=== PATIENT | male | born 1960 | race Caucasian/White ===

== ENCOUNTER → 2016-09-23 | Outpatient (CLI) | payer BC, OTHER ==
[~2016-09-23] VITALS: Ht 182.9 cm; Wt 115.7 kg
[~2016-09-23] MED LIST: ASPI81TA85 PO; ATEN100T PO; LIDOCAINE 2% INJ 100 MG/5 ML SDV (FOR ANES.) As Ordered ONE; LISI10TA2 PO; LISI20TA3 PO; NS 1,000 ML IV SCH; PRAV40TA2 PO; PROPOFOL 200 MG/20 ML VIAL As Ordered ONE; SILD25TA PO
--- NOTE | 2016-09-23 10:55 | ROOR ---
Patient Name: Lawrence Hansen Procedure Date: 09/23/2016 10:36 AM Date of : 1960 Age: 56 Room: [facility] Gender: Male Note Status: Finalized Procedure: Colonoscopy Indications: Screening for colorectal malignant neoplasm Providers: Sridhar Rodriguez Jr, MD Referring MD: [facility], Admin. Requesting Provider: Medicines: Propofol per Anesthesia Complications: No immediate complications. Procedure: Pre-Anesthesia Assessment: - Prior to the procedure, a History and Physical was performed, and patient medications and allergies were reviewed. The patient is competent. The risks and benefits of the procedure and the sedation options and risks were discussed with the patient. All questions were answered and informed consent was obtained. Patient identification and proposed procedure were verified by the physician and the nurse in the pre-procedure area and in the procedure room. Mental Status Examination: alert and oriented. Airway Examination: normal oropharyngeal airway and neck mobility. Respiratory Examination: clear to auscultation. CV Examination: normal. ASA Grade Assessment: II - A patient with mild systemic disease. After reviewing the risks and benefits, the patient was deemed in satisfactory condition to undergo the procedure. The anesthesia plan was to use moderate sedation / analgesia (conscious sedation). Immediately prior to administration of medications, the patient was re-assessed for adequacy to receive sedatives. The heart rate, respiratory rate, oxygen saturations, blood pressure, adequacy of pulmonary ventilation, and response to care were monitored throughout the procedure. The physical status of the patient was re-assessed after the procedure. The Colonoscope was introduced through the anus and advanced to the cecum, identified by appendiceal orifice and ileocecal valve. The colonoscopy was performed without difficulty. The patient tolerated the procedure well. The quality of the bowel preparation was adequate and good. Findings: The perianal and digital rectal examinations were normal. Pertinent negatives include normal sphincter tone, no palpable rectal lesions and no anal lesion or abnormality was detected. The recto-sigmoid colon, sigmoid colon, descending colon, transverse colon, ascending colon, cecum, appendiceal orifice and ileocecal valve appeared normal. Impression: - The recto-sigmoid colon, sigmoid colon, descending colon, transverse colon, ascending colon, cecum, appendiceal orifice and ileocecal valve are normal. - No specimens collected. Recommendation: - Discharge patient to home (ambulatory). - Repeat colonoscopy in 10 years for screening purposes. Sridhar Rodriguez MD Sridhar Rodriguez Jr, MD 09/23/2016 10:54:53 AM This report has been signed electronically. Number of Addenda: 0 Note Initiated On: 09/23/2016 10:36 AM Estimated Blood Loss: Estimated blood loss: none.
[2016-09-23 11:15] VITALS: BP 145/92
== END | disposition home or self-care (01) ==
LOC: M OPP 10:11
PROVIDERS: ATTEND Surgery
DX: Z12.11 Encounter for screening for malignant neoplasm of colon (principal); I10 Essential (primary) hypertension; E78.5 Hyperlipidemia, unspecified; R06.83 Snoring; Z87.891 Personal history of nicotine dependence; Z79.82 Long term (current) use of aspirin; Z79.899 Other long term (current) drug therapy
CPT/HCPCS: 99156; G0121

== ENCOUNTER → 2019-04-06 | Outpatient (REF) | payer OTHER ==
[~2019-04-06] MED LIST changes: -LIDOCAINE 2% INJ 100 MG/5 ML SDV (FOR ANES.) As Ordered ONE; +LISI10TA15 PO; -LISI10TA2 PO; +LISI20TA20 PO; -LISI20TA3 PO; -NS 1,000 ML IV SCH; -PROPOFOL 200 MG/20 ML VIAL As Ordered ONE
== END ==
LOC: M SFHCPLAZ 10:22
PROVIDERS: ATTEND Dermatology
DX: D22.4 Melanocytic nevi of scalp and neck (principal); L57.0 Actinic keratosis

== ENCOUNTER 2020-11-16 09:54 | Day surgery (SDC) | payer BC, OTHER ==
[~2020-11-16] VITALS: Ht 182.9 cm; Wt 119.1 kg
[~2020-11-16 09:54] MED LIST changes: -ASPI81TA85 PO; +ASPI81TA86 PO
[2020-11-16 10:35] LABS: BASO % 0.3 % (0.0-1.0); EOS # 0.4 10^3/uL (0.0-0.5); HEMATOCRIT 44.9 % (42.0-52.0); HEMOGLOBIN 15.2 g/dl (13.5-17.5); LYMPH # 1.9 10^3/uL (1.5-5.0); MEAN CORPUSCULAR HEMOGLOBIN 30.5 pg (27.0-33.0); MEAN CORPUSCULAR HGB CONC 33.9 g/dl (32.0-36.5); MONO # 0.8 10^3/uL (0.0-0.8); MONO % 6.8 % (2.0-8.0); NEUTROPHILS # 8.7 10^3/uL (1.5-8.5); NEUTROPHILS % 73.6 % (36.0-66.0); PLATELET COUNT, AUTOMATED 242 10^3/uL (150-450); RED BLOOD COUNT 4.99 10^6/uL (4.30-6.10); WHITE BLOOD COUNT 11.9 10^3/uL (4.0-10.0)
[2020-11-16 11:01] LABS: ALBUMIN 4.1 GM/DL (3.2-5.2); ALT/SGPT 24 U/L (12-78); BILIRUBIN,DIRECT < 0.1 MG/DL (0.0-0.2); BILIRUBIN,TOTAL 0.6 MG/DL (0.2-1.0); BLOOD UREA NITROGEN 12 MG/DL (7-18); CALCIUM LEVEL 9.2 MG/DL (8.5-10.1); CARBON DIOXIDE LEVEL 32 MEQ/L (21-32); CHLORIDE LEVEL 104 MEQ/L (98-107); CREATININE FOR GFR 0.94 MG/DL (0.70-1.30); GLOMERULAR FILTRATION RATE > 60.0 (>56); GLUCOSE, FASTING 97 MG/DL (70-100); LIPASE 112 U/L (73-393); POTASSIUM SERUM 3.8 MEQ/L (3.5-5.1); SODIUM LEVEL 140 MEQ/L (136-145); TOTAL PROTEIN 7.2 GM/DL (6.4-8.2)
--- NOTE | 2020-11-16 11:35 | REP ---
INDICATION: Pain rlq intermittent 3 months, concern hernia. COMPARISON: None. TECHNIQUE: Real-time sonographic evaluation of inguinal regions performed as well as right lower quadrant abdominal wall. FINDINGS: No evidence of anterior abdominal hernia in the right lower quadrant and no evidence of left inguinal hernia. There is a small right inguinal hernia with Valsalva maneuver, which contains peritoneal fat but no bowel. With Valsalva maneuver the defect is 2.5 cm in diameter. This freely reduces. There is no mass or fluid collection. IMPRESSION: Small reducible right inguinal hernia containing peritoneal fat, identified only with Valsalva maneuver. <Electronically signed by Dominic Ann > 11/16/20 [id number]
[2020-11-16] MEDS ORDERED: ISOVUE-370 76% 100ML VIAL As Ordered ONE (12:34)
[2020-11-16] MEDS ORDERED: NS 1,000 ML IV ONE (12:35)
--- NOTE | 2020-11-16 13:07 | REP ---
INDICATION: R lower groin pain , hernia on US, pain out prop to exam COMPARISON: None. TECHNIQUE: CT Scan of the abdomen and pelvis was performed with intravenous administration of 100 cc of Isovue 370, without oral contrast. Sagittal and coronal reconstruction images are performed. FINDINGS: Lung bases: Unremarkable. Liver: There is a 9 mm hypodensity in the right lobe of the liver probably representing a tiny cyst or hemangioma. Gallbladder: Unremarkable. Spleen: Normal. Adrenals: Normal. Pancreas: Normal. Kidneys: Normal. Small and large bowel: Unremarkable. Free fluid: Tiny amount of fluid adjacent to the distal appendix. Abdominal aorta: No aneurysm or dissection. Adenopathy: None. Appendix: The mid to distal appendix is diffusely distended and thickened with surrounding inflammatory fat infiltration, and inflammatory changes extending into the right pelvis more inferiorly. Osseous structures: Unremarkable. Pelvis: No mass. IMPRESSION: Appendicitis with a tiny amount of free fluid adjacent to the tip of the appendix. No free air or abscess. <Electronically signed by Dominic Ann > 11/16/20 [id number]
[2020-11-16] MEDS ORDERED: ONDANSETRON 4MG/2ML VIAL IV ONE (13:15)
[2020-11-16] MEDS ORDERED: MORPHINE 4 MG/ML 1ML VIAL/SYRINGE (J2270) IV ONE (13:15)
[2020-11-16] MEDS ORDERED: PIPERACILLIN/TAZOBACTAM SOD 3.375 GM in D5W MINI-BAG PLUS 50 ML IV ONE (13:20)
[2020-11-16] MEDS ORDERED: VALA1TAB5 PO (13:54)
[2020-11-16] MEDS ORDERED: BUPIVACAINE/EPIN 0.25% 30 ML VIAL As Ordered ONE (16:24)
[2020-11-16] MEDS ORDERED: MIDAZOLAM INJ 2MG/2ML VIAL (J2250 PER 1MG) As Ordered ONE (17:01)
[2020-11-16] MEDS ORDERED: ONDANSETRON 4MG/2ML VIAL As Ordered ONE (17:01)
[2020-11-16] MEDS ORDERED: dexameTHASONE 4 MG/ML 1ML VIAL (J1100 PER 1MG) As Ordered ONE (17:01)
[2020-11-16] MEDS ORDERED: propofoL 200 MG/20 ML VIAL As Ordered ONE (17:01)
[2020-11-16] MEDS ORDERED: ACETAMINOPHEN 1000MG 100ML IV BTL (OFIRMEV) (J0131 PER 10MG) As Ordered ONE (17:01)
[2020-11-16] MEDS ORDERED: KETOROLAC 60MG 2ML VIAL As Ordered ONE (17:01)
[2020-11-16] MEDS ORDERED: METOCLOPRAMIDE INJ 10MG/2ML VIAL (J2765 PER 1) As Ordered ONE (17:01)
[2020-11-16] MEDS ORDERED: SUCCINYLCHOLINE 100 MG/5 ML SYRINGE (J0330) As Ordered ONE (17:01)
[2020-11-16] MEDS ORDERED: fentaNYL 250 MCG/5 ML INJECTION (J3010) As Ordered ONE (17:01)
[2020-11-16] MEDS ORDERED: LIDOCAINE 2% 100MG/5ML SDV (FOR ANES.) As Ordered ONE (17:01)
[2020-11-16] MEDS ORDERED: DESFLURANE 240 ML INHALANT As Ordered ONE (17:27)
[2020-11-16] MEDS ORDERED: MORPHINE 4 MG/ML 1ML VIAL/SYRINGE (J2270) IV PRN ×2 (17:35)
[2020-11-16] MEDS ORDERED: PERCOCET 5MG/325MG TAB PO PRN ×2 (17:35)
[2020-11-16] MEDS ORDERED: SUGAMMADEX SODIUM 500 MG/5 ML VIAL (BRIDION) As Ordered ONE (17:36)
[2020-11-16] MEDS ORDERED: ROCURONIUM BROMIDE 50 MG/5 ML VIAL As Ordered ONE (17:36)
[2020-11-16] MEDS ORDERED: oxyCODONE 5MG TAB PO PRN (17:50)
[2020-11-16] MEDS ORDERED: HYDROMORPHONE HCL 0.5 MG/ 0.5 ML SYRINGE (J1170 PER 1) IV PRN (17:50)
[2020-11-16] MEDS ORDERED: LR 1,000 ML IV SCH (17:50)
[2020-11-16] MEDS ORDERED: fentaNYL 100 MCG/2 ML INJECTION (J3010) IV PRN (17:50)
[2020-11-16] MEDS ORDERED: ONDANSETRON 4MG/2ML VIAL IV PRN (17:50)
[2020-11-16] MEDS ORDERED: D5W/LR 1,000 ML IV SCH (18:00)
[2020-11-16 18:26] VITALS: BP 121/63
[2020-11-16 18:30] VITALS: BP 121/63
[2020-11-16 19:51] VITALS: BP 118/62
[2020-11-16] MEDS: PIPERACILLIN/TAZOBACTAM SOD 3.375 GM in D5W MINI-BAG PLUS 50 ML IV SCH (20:09)
[2020-11-16 21:07] VITALS: BP 117/63
[2020-11-16 22:48] VITALS: BP 118/64
[2020-11-16] MEDS: KETOROLAC 30 MG/ML 1ML VIAL IV SCH (23:21)
[2020-11-17 02:00] VITALS: BP 116/79
[2020-11-17] MEDS: PIPERACILLIN/TAZOBACTAM SOD 3.375 GM in D5W MINI-BAG PLUS 50 ML IV SCH ×2 (02:24→08:50)
[2020-11-17] MEDS: KETOROLAC 30 MG/ML 1ML VIAL IV SCH (06:00)
[2020-11-17 06:23] VITALS: BP 117/65
[2020-11-17] MEDS ORDERED: AUGM500T34 PO (08:32)
[2020-11-17] MEDS ORDERED: PERCOCET PO (08:32)
[2020-11-17 10:00] VITALS: BP 110/60
--- NOTE | 2020-12-10 09:15 | RO ---
OPERATIVE NOTE DATE OF OPERATION: 11/18/2020 PREOPERATIVE DIAGNOSIS: Acute appendicitis. POSTOPERATIVE DIAGNOSIS: Acute appendicitis. PROCEDURE: Laparoscopic appendectomy. SURGEON: Sridhar Rodriguez Jr., MD WORKFORCE MANAGER: ANESTHESIA: General endotracheal anesthesia. ESTIMATED BLOOD LOSS: Minimal. FLUIDS: Crystalloid. BRIEF PROCEDURE SUMMARY: Patient was brought to the operating room and was given general anesthesia. After adequate anesthesia and preoperative antibiotics were appreciated, the patient was prepped and draped in the usual sterile fashion. Next, a suprapubic incision was made with a skin knife. Blunt dissection was carried down to fascia. The fascia was entered using Veress needle, insufflated to 15 mmHg, and a dilating 12-mm trocar was placed. Under direct visualization, a suprapubic and left lower quadrant 5-mm trocars were placed. Next, the right lower quadrant was evaluated and, indeed, there was an appendix with some fibrinous exudate all over it and some inflammation of the appendix itself as well as the periappendiceal fat. The appendix was mobilized off the right abdominal wall using harmonic scalpel, and once this was mobilized adequately, the mesentery of the appendix was taken with harmonic scalpel all the way to the base of the appendix/cecal wall. Once this was nicely identified, a JEAN MARIE stapler was placed across the base of the appendix and the appendix placed in an Endo Catch bag and brought out through the umbilicus. The right lower quadrant was copiously irrigated until clear. Operative field was clean and dry, and no turbid fluid was appreciated; no evidence of perforation of the appendix had been appreciated. Thus, all trocars were removed under direct visualization and 0 Vicryl was used to close the fascia at the umbilicus, and trocar sites were closed with 4-0 Vicryl. Steri-Strips and a dry sterile dressing were applied. The patient was awakened, extubated, and brought to the recovery room awake, alert, and hemodynamically stable. Sponge and needle counts correct times two.
== END 2020-11-17 11:15 | disposition home or self-care (01) ==
LOC: M ED 09:54 → M SDC 09:55 → ENRESERV 16:05 → M MS5PR 18:15 → M SDC 11-17 11:15
PROVIDERS: ATTEND Surgery
DX: K35.80 Unspecified acute appendicitis (principal); Z87.09 Personal history of other diseases of the respiratory system; K40.90 Unilateral inguinal hernia, without obstruction or gangrene, not specified as recurrent; I10 Essential (primary) hypertension; E78.5 Hyperlipidemia, unspecified; N52.9 Male erectile dysfunction, unspecified; E66.9 Obesity, unspecified; Z68.35 Body mass index [BMI] 35.0-35.9, adult; Z79.899 Other long term (current) drug therapy; Z86.16 Personal history of COVID-19; Z87.891 Personal history of nicotine dependence
CPT/HCPCS: 44970; 74177; 76857; 80048; 80076; 81001; 83690; 85025; 87798; 88304; 96365; 96366; 96375; 96376; 99283; J0131; J0330; J1100; J1885; J2250; J2270; J2405; J2543; J2765; J3010; Q9967

== ENCOUNTER 2020-12-02 18:06 | Emergency (ER) | payer BC, OTHER ==
[~2020-12-02] VITALS: Ht 182.9 cm; Wt 116.5 kg
[~2020-12-02 18:06] MED LIST changes: +AUGM500T34 PO; +PERCOCET PO; +VALA1TAB5 PO
[2020-12-02] MEDS ORDERED: ONDANSETRON 4MG/2ML VIAL IV ONE (19:10)
[2020-12-02] MEDS: KETOROLAC 30 MG/ML 1ML VIAL IV ONE ×2 (19:10→20:12)
[2020-12-02] MEDS ORDERED: NS 1,000 ML IV ONE (19:10)
[2020-12-02 20:08] LABS: BASO % 0.1 % (0.0-1.0); EOS # 0.3 10^3/uL (0.0-0.5); EOS % 2.4 % (0.0-3.0); HEMATOCRIT 48.1 % (42.0-52.0); HEMOGLOBIN 16.4 g/dl (13.5-17.5); LYMPH # 1.2 10^3/uL (1.5-5.0); MEAN CORPUSCULAR HEMOGLOBIN 30.3 pg (27.0-33.0); MEAN CORPUSCULAR HGB CONC 34.1 g/dl (32.0-36.5); MEAN CORPUSCULAR VOLUME 88.7 fl (80.0-96.0); MONO # 0.5 10^3/uL (0.0-0.8); MONO % 4.7 % (2.0-8.0); NEUTROPHILS # 8.5 10^3/uL (1.5-8.5); NEUTROPHILS % 81.4 % (36.0-66.0); PLATELET COUNT, AUTOMATED 211 10^3/uL (150-450); RED BLOOD COUNT 5.42 10^6/uL (4.30-6.10); WHITE BLOOD COUNT 10.5 10^3/uL (4.0-10.0)
[2020-12-02] MEDS ORDERED: ISOVUE-370 76% 100ML VIAL As Ordered ONE (20:18)
[2020-12-02 20:31] LABS: ALBUMIN 3.8 GM/DL (3.2-5.2); BILIRUBIN,DIRECT 0.2 MG/DL (0.0-0.2); BILIRUBIN,TOTAL 0.8 MG/DL (0.2-1.0); TOTAL PROTEIN 7.1 GM/DL (6.4-8.2)
--- NOTE | 2020-12-02 22:05 | REPVR ---
PROCEDURE INFORMATION: Exam: CT Abdomen and Pelvis with Contrast Exam date and time: 12/02/20 (8:25pm) Age: 60 years old Clinical indication: RLQ pain. S/P appendectomy. TECHNIQUE: Imaging protocol: Computed tomography of the abdomen and pelvis with contrast. Radiation optimization: All CT scans at this facility use at least one of these dose optimization techniques: automated exposure control; mA and/or kV adjustment per patient size (includes targeted exams where dose is matched to clinical indication); or iterative reconstruction. Contrast material: Isovue 370 Contrast volume: 100 ml Contrast route: IV COMPARISON: CT ABDOMEN PELVIS of 11/16/20 FINDINGS: Liver: No solid mass. Small right hepatic lobe cyst (Ser. 201 - Image #43). Gallbladder and bile ducts: Normal. No calcified stones. No ductal dilatation. Pancreas: Normal. No ductal dilatation. Spleen: Normal. No splenomegaly. Adrenal glands: Normal. No mass. Kidneys and ureters: Normal. No hydronephrosis. Stomach and bowel: Unremarkable. No bowel obstruction. No mucosal thickening. Appendix: S/P appendectomy. Intraperitoneal space: Unremarkable. No free air. No significant fluid collection. Vasculature: Unremarkable. No abdominal aortic aneurysm. Lymph nodes: Unremarkable. No enlarged lymph nodes. Urinary bladder: Unremarkable as visualized. Reproductive: Unremarkable as visualized. Enlarged prostate. Fluid: Minimal amount of nonspecific pelvic fluid. Bones/joints: Unremarkable. No acute fracture. Soft tissues: Unremarkable. IMPRESSION: No acute bowel pathology. No abscess. S/P appendectomy. Minimal amount of nonspecific pelvic fluid. Electronically signed by: Lisy Huntley On 12/02/2020 22:04:54 PM
[2020-12-02] MEDS ORDERED: ONDA4TAB6 PO (22:32)
[2020-12-02] MEDS ORDERED: SIME180C25 PO (22:32)
[2020-12-02 22:51] VITALS: BP 104/53
== END 2020-12-02 22:54 | disposition home or self-care (01) ==
LOC: M ED 18:06
DX: G89.18 Other acute postprocedural pain (principal); R10.9 Unspecified abdominal pain; R07.1 Chest pain on breathing; R50.9 Fever, unspecified; R11.0 Nausea; R19.7 Diarrhea, unspecified; I10 Essential (primary) hypertension; Z79.899 Other long term (current) drug therapy
CPT/HCPCS: 74177; 80047; 80076; 81001; 83605; 83690; 85025; 87040; 96361; 96374; 99283; J2405; Q9967

== ENCOUNTER 2020-12-05 11:21 | Emergency (ER) | payer BC, OTHER ==
[~2020-12-05] VITALS: Ht 185.4 cm; Wt 117.2 kg
[~2020-12-05 11:21] MED LIST changes: +ONDA4TAB6 PO; +SIME180C25 PO
[2020-12-05 12:14] LABS: BASO % 0.1 % (0.0-1.0); EOS # 0.4 10^3/uL (0.0-0.5); EOS % 4.1 % (0.0-3.0); HEMATOCRIT 46.5 % (42.0-52.0); HEMOGLOBIN 15.9 g/dl (13.5-17.5); LYMPH # 1.2 10^3/uL (1.5-5.0); LYMPH % 12.5 % (24.0-44.0); MEAN CORPUSCULAR HEMOGLOBIN 30.5 pg (27.0-33.0); MEAN CORPUSCULAR HGB CONC 34.2 g/dl (32.0-36.5); MEAN CORPUSCULAR VOLUME 89.1 fl (80.0-96.0); MONO # 0.8 10^3/uL (0.0-0.8); MONO % 8.1 % (2.0-8.0); NEUTROPHILS # 6.9 10^3/uL (1.5-8.5); NEUTROPHILS % 74.9 % (36.0-66.0); PLATELET COUNT, AUTOMATED 203 10^3/uL (150-450); RED BLOOD COUNT 5.22 10^6/uL (4.30-6.10); WHITE BLOOD COUNT 9.2 10^3/uL (4.0-10.0)
[2020-12-05 12:41] LABS: ALBUMIN 3.8 GM/DL (3.2-5.2); BILIRUBIN,DIRECT 0.1 MG/DL (0.0-0.2); BILIRUBIN,TOTAL 0.5 MG/DL (0.2-1.0)
[2020-12-05] MEDS ORDERED: NS 1,000 ML IV ONE (13:55)
[2020-12-05] MEDS ORDERED: ONDANSETRON 4MG/2ML VIAL IV ONE (13:55)
[2020-12-05] MEDS: GASTROGRAFIN SOLUTION 30ML PO SCH ×2 (14:25→15:38)
[2020-12-05] MEDS ORDERED: ISOVUE-370 76% 100ML VIAL As Ordered ONE (16:30)
--- NOTE | 2020-12-05 18:00 | REPVR ---
PROCEDURE INFORMATION: Exam: CT Abdomen And Pelvis With Contrast Exam date and time: 12/05/2020 4:53 PM Age: 60 years old Clinical indication: Other: Diffuse abd pain, diarrhea tntc x6 days TECHNIQUE: Imaging protocol: Computed tomography of the abdomen and pelvis with contrast. Radiation optimization: All CT scans at this facility use at least one of these dose optimization techniques: automated exposure control; mA and/or kV adjustment per patient size (includes targeted exams where dose is matched to clinical indication); or iterative reconstruction. Contrast material: ISOVUE 370; Contrast volume: 100 ml; Contrast route: INTRAVENOUS (IV); COMPARISON: CT ABD/PEL W/IV CONTRAST ONLY 12/02/2020 8:17 PM FINDINGS: Lungs: Clear appearing lung bases Heart: The heart is normal in size and there is no pericardial effusion. Liver: 3 mm cyst inferior right lobe of the liver. There is otherwise uniform enhancement of the liver. Gallbladder and bile ducts: Normal common bile duct. Normal gallbladder. No biliary dilatation. Pancreas: Normal pancreas. Spleen: Normal spleen. Adrenal glands: Normal adrenal glands. Kidneys and ureters: There is enhancement of both kidneys and no evidence of hydronephrosis. Stomach and bowel: There is contrast throughout the small bowel with no evidence of obstruction. Intraperitoneal space: There is no evidence of pneumoperitoneum. No evidence of mesenteric mass. Vasculature: There is opacification of the aorta which appears intact. The there are surgical clips in the region of the appendix. Lymph nodes: There is no evidence of lymphadenopathy. Urinary bladder: Normal urinary bladder. Reproductive: Mild enlargement of the prostate. Bones/joints: There is mild posterior disc protrusion L4-L5 and L5-S1. Soft tissues: There is no evidence of soft tissue abnormality. IMPRESSION: Normal appearing CT scan the abdomen and the pelvis. Electronically signed by: Meliton Vogt On 12/05/2020 17:59:31 PM
[2020-12-05] MEDS ORDERED: LOPE-39 PO (19:14)
[2020-12-05 19:38] VITALS: BP 164/94
== END 2020-12-05 19:40 | disposition home or self-care (01) ==
LOC: M ED 11:21
DX: R14.0 Abdominal distension (gaseous) (principal); R19.7 Diarrhea, unspecified; I10 Essential (primary) hypertension; E78.5 Hyperlipidemia, unspecified; Z79.899 Other long term (current) drug therapy
CPT/HCPCS: 74177; 80076; 81001; 83605; 83690; 85025; 87505; 96374; 99284; J2405; Q9963; Q9967

== ENCOUNTER 2020-12-06 18:22 | Inpatient (IN) | payer BC, OTHER ==
[~2020-12-06] VITALS: Ht 182.9 cm; Wt 118.0 kg
[~2020-12-06 18:22] MED LIST changes: +LOPE-39 PO
[2020-12-06] MEDS ORDERED: PROMETHAZINE INJ 25 MG/ML VIAL (J2550) IV ONE (19:55)
[2020-12-06] MEDS ORDERED: NS 3,410 ML in IV 1 EA IV ONE (19:55)
[2020-12-06] MEDS ORDERED: LOMOTIL 2.5MG/0.025MG TABLET PO ONE (19:55)
[2020-12-06 20:52] LABS: BASO # 0.1 10^3/uL (0.0-0.2); BASO % 0.6 % (0.0-1.0); EOS # 0.2 10^3/uL (0.0-0.5); EOS % 1.5 % (0.0-3.0); LYMPH # 1.2 10^3/uL (1.5-5.0); LYMPH % 8.4 % (24.0-44.0); MEAN CORPUSCULAR HEMOGLOBIN 30.3 pg (27.0-33.0); MEAN CORPUSCULAR HGB CONC 34.1 g/dl (32.0-36.5); MEAN CORPUSCULAR VOLUME 88.8 fl (80.0-96.0); MONO # 0.9 10^3/uL (0.0-0.8); MONO % 6.6 % (2.0-8.0); NEUTROPHILS # 11.6 10^3/uL (1.5-8.5); NEUTROPHILS % 81.9 % (36.0-66.0); PLATELET COUNT, AUTOMATED 290 10^3/uL (150-450); RED BLOOD COUNT 6.53 10^6/uL (4.30-6.10); WHITE BLOOD COUNT 14.2 10^3/uL (4.0-10.0)
[2020-12-06 20:53] LABS: HEMOGLOBIN 19.8 g/dl (13.5-17.5)
[2020-12-06] MEDS ORDERED: SIMETHICONE 80MG CHEW TAB PO SCH (21:00)
[2020-12-06 21:08] LABS: ALT/SGPT 20 U/L (12-78); BILIRUBIN,DIRECT < 0.1 MG/DL (0.0-0.2); BILIRUBIN,TOTAL 0.7 MG/DL (0.2-1.0); BLOOD UREA NITROGEN 14 MG/DL (7-18); CALCIUM LEVEL 9.9 MG/DL (8.5-10.1); CARBON DIOXIDE LEVEL 24 MEQ/L (21-32); CHLORIDE LEVEL 104 MEQ/L (98-107); CK-MB VALUE MASS 1.4 NG/ML (<3.6); CPK CREATINE PHOSPHOKINASE 70 U/L (39-308); CREATININE FOR GFR 1.47 MG/DL (0.70-1.30); GLOMERULAR FILTRATION RATE 52.2 (>56); GLUCOSE, FASTING 126 MG/DL (70-100); LIPASE 84 U/L (73-393); POTASSIUM SERUM 4.2 MEQ/L (3.5-5.1); SODIUM LEVEL 140 MEQ/L (136-145); TOTAL PROTEIN 7.5 GM/DL (6.4-8.2); TROPONIN I < 0.02 NG/ML (< 0.10)
[2020-12-06 22:46] LABS: INR 1.03; PROTHROMBIN TIME 13.7 SECONDS (12.5-14.3)
[2020-12-06] MEDS ORDERED: ACETAMINOPHEN *IV* 1,000 MG in IV 1 EA IV ONE (23:35)
[2020-12-06] MEDS ORDERED: ISOVUE-370 76% 100ML VIAL As Ordered ONE (23:39)
--- NOTE | 2020-12-07 00:39 | REPVR ---
PROCEDURE INFORMATION: Exam: CTA Abdomen and Pelvis With Contrast Exam date and time: 12/06/2020 11:48 PM Age: 60 years old Clinical indication: Abdominal pain; Generalized; Additional info: Intractable diarrhea/abd pain, lactic acidosis, ? ischemia TECHNIQUE: Imaging protocol: Computed tomographic angiography of the abdomen and pelvis with contrast material. 3D rendering (Not supervised by radiologist): MIP and/or 3D reconstructed images were created by the technologist. Radiation optimization: All CT scans at this facility use at least one of these dose optimization techniques: automated exposure control; mA and/or kV adjustment per patient size (includes targeted exams where dose is matched to clinical indication); or iterative reconstruction. Contrast material: ISOVUE 370; Contrast volume: 100 ml; Contrast route: INTRAVENOUS (IV); COMPARISON: 1. CT ABD/PEL W/IV ORAL CONTRAS 2020-12-05 16:[address] ABD/PEL W/IV CONTRAST ONLY 2020-12-02 20:17 FINDINGS: Mediastinal space: Mild gastro-esophageal thickening. Question distal esophagitis. Aorta: Mild aortic atherosclerosis. Mild aortic and iliac artery atherosclerotic calcification. Celiac trunk and mesenteric arteries: No occlusion or significant stenosis. Renal arteries: No occlusion or significant stenosis. Right iliac arteries: No occlusion or significant stenosis. Left iliac arteries: No occlusion or significant stenosis. Liver: Small, less than 5 mm, liver hypodensity. Highly likely to be benign and does not require follow-up imaging or biopsy per ACR. Hepatic steatosis. Gallbladder and bile ducts: Unremarkable. No calcified stones. No ductal dilation. Pancreas: Unremarkable. No mass. No ductal dilation. Spleen: 1 cm splenule near the anterior margin of the spleen. Adrenal glands: Unremarkable. No mass. Kidneys and ureters: Unremarkable. No solid mass. No hydronephrosis. Stomach and bowel: Moderate gastric distension. Excess fluid within the small and large bowel. Small bowel wall thickening. Appendix: Appendectomy. Intraperitoneal space: Unremarkable. No free air. No significant fluid collection. Lymph nodes: Mild mesenteric stranding and adenopathy. Evidence for infectious or inflammatory enterocolitis. Urinary bladder: Unremarkable. No mass. Reproductive: Unremarkable as visualized. Bones/joints: Mild right iliac atherosclerosis. Mild left iliac atherosclerosis. Soft tissues: Unremarkable. IMPRESSION: 1. Major mesenteric artery branches are patent. 2. Mild gastro-esophageal thickening. Question distal esophagitis. 3. Moderate gastric distension. Excess fluid within the small and large bowel. Small bowel wall thickening. Mild mesenteric stranding and adenopathy. Evidence for infectious or inflammatory enterocolitis. Electronically signed by: Ayush Gallo On 12/07/2020 00:39:19 AM
[2020-12-07] MEDS ORDERED: ONDA4TAB6 PO (01:21)
[2020-12-07] MEDS ORDERED: SIME1CAP3 PO (01:21)
[2020-12-07] MEDS ORDERED: PINK BISMUTH SUSP 524MG/30ML ORAL SYRINGE PO PRN (02:00)
[2020-12-07] MEDS ORDERED: ONDANSETRON 4 MG ORAL DISINTEGRATING TAB PO PRN (02:10)
[2020-12-07] MEDS ORDERED: valACYclovir HCL 500 MG TAB PO PRN (02:10)
[2020-12-07 02:54] LABS: BASO % 0.4 % (0.0-1.0); EOS # 0.4 10^3/uL (0.0-0.5); EOS % 3.7 % (0.0-3.0); HEMATOCRIT 45.8 % (42.0-52.0); LYMPH # 0.5 10^3/uL (1.5-5.0); LYMPH % 4.4 % (24.0-44.0); MEAN CORPUSCULAR HEMOGLOBIN 30.5 pg (27.0-33.0); MEAN CORPUSCULAR HGB CONC 34.7 g/dl (32.0-36.5); MEAN CORPUSCULAR VOLUME 87.9 fl (80.0-96.0); MONO # 0.8 10^3/uL (0.0-0.8); MONO % 7.2 % (2.0-8.0); NEUTROPHILS % 83.6 % (36.0-66.0); PLATELET COUNT, AUTOMATED 191 10^3/uL (150-450); RED BLOOD COUNT 5.21 10^6/uL (4.30-6.10); WHITE BLOOD COUNT 10.8 10^3/uL (4.0-10.0)
[2020-12-07 02:57] LABS: HEMOGLOBIN 15.9 g/dl (13.5-17.5)
[2020-12-07 03:06] LABS: ERYTHROCYTE SEDIMENTATION RATE 1 mm/hr (0-20)
[2020-12-07] MEDS: NS 1,000 ML IV SCH ×5 (03:25→22:28)
[2020-12-07] MEDS: LOPERAMIDE 2 MG CAPLET PO PRN ×2 (04:44→09:45)
[2020-12-07 04:56] LABS: ALBUMIN 3.1 GM/DL (3.2-5.2); ALT/SGPT 15 U/L (12-78); BILIRUBIN,DIRECT 0.1 MG/DL (0.0-0.2); BILIRUBIN,TOTAL 0.5 MG/DL (0.2-1.0); BLOOD UREA NITROGEN 14 MG/DL (7-18); CALCIUM LEVEL 7.7 MG/DL (8.5-10.1); CARBON DIOXIDE LEVEL 22 MEQ/L (21-32); CHLORIDE LEVEL 111 MEQ/L (98-107); CREATININE FOR GFR 1.25 MG/DL (0.70-1.30); GLOMERULAR FILTRATION RATE > 60.0 (>56); GLUCOSE, FASTING 128 MG/DL (70-100); POTASSIUM SERUM 4.1 MEQ/L (3.5-5.1); SODIUM LEVEL 142 MEQ/L (136-145); TOTAL PROTEIN 5.6 GM/DL (6.4-8.2)
[2020-12-07 05:00] VITALS: BP 134/85
--- NOTE | 2020-12-07 05:22 | HPEPDOC ---
General Date of Admission 12/07/20 Date of Service: Dec 07, 2020 Chief Complaint The patient is a 60-year-old male admitted with a reason for visit of Diarrhea. Source: Patient, RN/MD Severity: Moderate Associated Symptoms: Nausea, Weakness, Other (Diarrhea) History of Present Illness Mr. Hansen is a 60 year old male with significant PMH of abdominal bloating, s/p vein stripping Left lower leg in 2003, hypercholesterolemia, HTN, Right clavicle with repair, collapsed lung, appendicitis with appendectomy, Patient denies chest pains at this Time. In reviewing patients laboratory result wbc 10.8, hemiglobin 15.9 and hematocrit, 45.8, absolute palate is 83.36. Mr. Hansen stool sample taken in the ED was said to be negative Mr. Hansen will be admitted to Medical-Surgical unit tor ongoing evaluation Home Medications Scheduled Atenolol (Atenolol) 100 Mg Tab, 100 MG PO DAILY, (Reported) Lisinopril/Hydrochlorothiazide (Lisinopril-Hctz 20-25 mg Tab) 1 Tab Tab, 1 TAB PO DAILY, (Reported) Loperamide HCl (Imodium A-D) 2 Mg Capsule, 2 MG PO ASDIRECTED take 2 tabs, then one after each bowel movement (not to exceed 4 in 24 hrs) Pravastatin Sodium (Pravastatin Sodium) 40 Mg Tab, 40 MG PO DAILY, (Reported) Simethicone (Simethicone) 180 Mg Capsule, 180 MG PO TID, (Reported) Scheduled PRN Ondansetron (Ondansetron Odt) 4 Mg Tab.rapdis, 4 MG PO Q6-8HP PRN for nausea/vomiting, (Reported) Sildenafil Citrate (Viagra) 25 Mg Tab, 25 MG PO PRN PRN for ERECTILE DYSFUNCTION, (Reported) Valacyclovir HCl (Valacyclovir) 1,000 Mg Tablet, 1,000 MG PO DAILY PRN for FLARE UP, (Reported) Allergies Coded Allergies: No Known Allergies (Unverified , 09/16/16) Past Medical History Medical History Essential hypertension. vascular disease, nausea/vomiting, erectile dysfunction, hyperlipidemia, Gas/bloating, herpes simplex virus Surgical History Appendectomy, Right clavicle repair, vascular surgery -striping vein Left leg in 2003, colonoscopy Social History * Smoker: Denies Alcohol: Denies Drugs: denies (illicit drug use), prescription drugs Psychosocial History: No pertinent psych hx A-FIB/CHADSVASC A-FIB History Current/History of A-Fib/PAF?: No Review of Systems Constitutional: Reports: Malaise, Weakness, Weight Loss ENT: Reports: Head Aches Cardiovascular: Reports: Lt Headedness Gastrointestinal: Reports: Nausea, Vomiting, Abdominal Pain, Diarrhea Genitourinary: Denies: Dysuria, Frequency, Incontinence, Hematuria, Retention, Other Symptoms Hematologic: Denies: Bruising, Bleeding Excessively, Petecchia, Purpura, Enlarged Lymph Nodes, Other Hematologic Endocrine: Denies: Polydipsia, Polyphagia, Polyuria, Heat Intolerance, Cold Intolerance, Other Endocrine Sx Neurological: Denies: Weakness, Numbness, Incoordination, Change in speech, Confusion, Seizures, Other Symptoms Psych: Denies: Mood Normal, Anxiety, Depression, Memory Issues, Thoughts of Self Harm, Anger, Thoughts of Harming Other, Other Psych Physical Examination General Exam: Positive: Alert, No Acute Distress Eye Exam: Positive: PERRLA, Conjunctiva & lids normal ENT Exam: Positive: Mucous membr. moist/pink, Tympanic Membranes Normal Neck Exam: Positive: Supple, JVD Chest Exam: Positive: Normal air movement Heart Exam: Positive: Rate Normal Telemetry: Positive: Sinus Abdomen Exam: Positive: BS Hyperactive, Tenderness Extremity Exam: Positive: Normal pulses Neuro Exam: Positive: Normal Gait, Normal Speech Vital Signs Vital Signs Date Time Temp Pulse Resp B/P (MAP) Pulse Ox O2 Delivery O2 Flow Rate FiO2 12/06/20 23:21 101.4 89 19 98 12/06/20 23:01 138/73 (94) 12/06/20 22:07 Room Air Laboratory Data Labs 24H Laboratory Tests 2 12/06/20 20:07: Immature Granulocyte % (Auto) 1.0, Neutrophils (%) (Auto) 81.9H, Lymphocytes (%) (Auto) 8.4L, Monocytes (%) (Auto) 6.6, Eosinophils (%) (Auto) 1.5, Basophils (%) (Auto) 0.6, Neutrophils # (Auto) 11.6H, Lymphocytes # (Auto) 1.2L, Monocytes # (Auto) 0.9H, Eosinophils # (Auto) 0.2, Basophils # (Auto) 0.1, Nucleated Red Blood Cells % (auto) 0.0, Prothrombin Time 13.7, Prothromb Time International Ratio 1.03, Activated Partial Thromboplast Time 20.0L, Anion Gap 12, Glomerular Filtration Rate 52.2L, Lactic Acid Level 4.2*H, Calcium Level 9.9, Total Bilirubin 0.7, Direct Bilirubin < 0.1, Aspartate Amino Transf (AST/SGOT) 13, Alanine Aminotransferase (ALT/SGPT) 20, Alkaline Phosphatase 87, Total Creatine Kinase 70, Creatine Kinase MB 1.4, Creatine Kinase MB Relative Index 2.00, Troponin I < 0.02, Total Protein 7.5, Albumin 4.0, Albumin/Globulin Ratio 1.1, Lipase 84 CBC/BMP Laboratory Tests 12/06/20 20:07 Microbiology Microbiology 12/06/20 Gastrointestinal Tract Panel (PCR) - Final, Complete 12/06/20 Blood Culture, Received Pending 12/06/20 Blood Culture, Received Pending Problems (1) Dehydration Status: Acute Discussed With: Patient Problem Specific Plan: Monitor Clinically, Repeat Labs Problem Text: Mr. Hansen is a 60 year-old male with significant PMH of Essential Hypertension, Hyperlipidemia, Erectile dysfunction, abdominal bloating/flatus, presents to [facility] ER with nausea, vomiting, and diarrhea saying his symptoms has not improved since his last visit to the ER for the same symptoms. In reviewing patients' lab results it Dehydration and Lactic acidosis secondary to nausea, vomiting, diarrhea-Acute Plan Admit to Observation unit Monitor V/S, Strict I &O, and daily Loperamide 2 mg o after each bowel movement prn IVF NS at 200 ml/hr Re-check labs due to acute lactic acidosis (lactic acid 4.2, WBC 14.2, H&H 19.8/58, eGFR 52.2, serum creatinine 1.47) Clear liquid diet and advance as tolerated Daily weight Abdominal pain-acute continue Simethicone 180 mg po tid Essential Hypertension-chronic continue home medication: Atenolol 100 mg po daily, Lisinopril-HCTZ 20-25 mg po daily Hyperlipidemia-chronic continue taking Pravastatin Sodium 40 mg po daily Erectile Dysfunction-chronic hold home medication Sildenafil citrate 25 mg Herpes simplex virus-chronic continue home medication : Valacyclovir 1000 mg po daily prn acute flare up PPI: Maalox 30 cc q 4 hours prn DVT Prophylaxis: Heparin 5000 IU SQ TID Discharge: pending clinical course (2) Lactic acidosis Status: Acute Problem Specific Plan: Monitor Clinically, Repeat Labs (3) Diarrhea Status: Acute Problem Specific Plan: Monitor Clinically, Repeat Labs Plan / VTE VTE Prophylaxis Ordered?: Yes ARPITA AVENDANO Dec 07, 2020 01:59
--- NOTE | 2020-12-07 06:25 | ECGEPIP ---
[facility] - ED Test Date: 2020-12-06 Pat Name: RONNIE MEZA Department: Room: - Gender: Male Manager Software: hc : 1960 Requested By: EHCO Myles Order Number: [id number] Reading MD: Alex Jaramillo Measurements Intervals [place] Rate: 80 P: 42 NM: 168 QRS: -5 QRSD: 98 T: 59 QT: 394 QTc: 454 Interpretive Statements Normal sinus rhythm Leftward axis Nonspecific ST T wave changes No prior ECG for comparison Electronically Signed on 12-07-2020 6:25:43 EDT by Alex Jaramillo
[2020-12-07] MEDS: HEPARIN SOD (PORCINE) 5000UNITS/ML 1ML VIAL/SYRINGE SQ SCH ×3 (06:41→20:31)
[2020-12-07] MEDS ORDERED: ONDANSETRON 4MG/2ML VIAL IV PRN (07:05)
[2020-12-07] MEDS ORDERED: ACETAMINOPHEN TAB 650MG DOSE (2X325MG) PO PRN (07:05)
[2020-12-07] MEDS: PRAVASTATIN 20 MG TAB PO SCH (08:19)
[2020-12-07] MEDS: atenoloL 50 MG TAB PO SCH (08:19)
[2020-12-07] MEDS: PANTOPRAZOLE 40MG VIAL (C9113 PER 1) IV SCH (08:19)
--- NOTE | 2020-12-07 11:26 | IPNPDOC ---
Subjective Date Seen The patient was seen on 12/07/20. Subjective Chief Complaint/HPI Had 40 times diarrhea yesterday watery large amounts, few were blood streaked. Already had 10 times today. No abdominal pain, but says he hears a lot of grumbling noises in the abdomen. No vomiting. Did have a fever of 101.4 on admission but no fever After that Objective Physical Examination General Exam: Positive: Alert, Cooperative, No Acute Distress Eye Exam: Positive: PERRLA, Conjunctiva & lids normal ENT Exam: Positive: Atraumatic, Mucous membr. moist/pink Neck Exam: Positive: Supple, JVD Chest Exam: Positive: Clear to auscultation, Normal air movement Heart Exam: Positive: Rate Normal, Regular Rhythm, Normal S1, Normal S2; Negative: Murmurs, Rubs Abdomen Exam: Positive: BS Hyperactive, Soft; Negative: Tenderness, Mass, Hernia Extremity Exam: Negative: Clubbing, Cyanosis, Edema Neuro Exam: Positive: Normal Gait, Normal Speech Assessment /Plan Assessment Mr. Hansen is a 60 year old male with PMH of HTn, HLD, Obesity, s/p vein stripping Left lower leg in 2003, resent appendicitis with appendectomy 3 weeks ago has been having intractable diarrhea for 1 week. This is the patient's third visit to the ED with intractable diarrhea. GI panel has been negative and CT abdomen has been negative. Initially the diarrhea was watery then it became bloody on 12/06/20 that prompted him to come back to the ED and also he had gone about 33 times and had a stool incontinence at home also. On the day of admission he had 40 bowel movements. He was dehydrated with lactic acidosis. He was admitted for intractable diarrhea, dehydration with lactic acidosis. Intractable diarrhea with dehydration and lactacidosis GI panel x 3 times negative, CT abd and pelvis just shows fluid filled stomach, intestines suggesting enteritis. H/O appendectomy 3 weeks ago Does Not look infective but will give fl Likely secretory diarrhea continue loperamide will start on octreotide. Essential Hypertension-chronic continue home medication: Atenolol 100 mg po daily, will hold lisinorpil and HCTZ. Hyperlipidemia-chronic statin Erectile Dysfunction-chronic Sildenafil citrate 25 mg Herpes simplex virus-chronic Valacyclovir 1000 mg po daily prn acute flare up Plan/VTE VTE Prophylaxis Ordered?: Yes VS, I&O, 24H, Fishbone Vital Signs/I&O Vital Signs Date Time Temp Pulse Resp B/P (MAP) Pulse Ox O2 Delivery O2 Flow Rate FiO2 12/07/20 08:19 71 134/85 12/07/20 05:00 97.9 18 97 Room Air I&O- Last 24 Hours up to 6 AM 12/07/20 06:00 Intake Total 4903 ml Balance 4903 ml Laboratory Data 24H LABS Laboratory Tests 2 12/06/20 20:07: Immature Granulocyte % (Auto) 1.0, Neutrophils (%) (Auto) 81.9H, Lymphocytes (%) (Auto) 8.4L, Monocytes (%) (Auto) 6.6, Eosinophils (%) (Auto) 1.5, Basophils (%) (Auto) 0.6, Neutrophils # (Auto) 11.6H, Lymphocytes # (Auto) 1.2L, Monocytes # (Auto) 0.9H, Eosinophils # (Auto) 0.2, Basophils # (Auto) 0.1, Nucleated Red Blood Cells % (auto) 0.0, Prothrombin Time 13.7, Prothromb Time International Ratio 1.03, Activated Partial Thromboplast Time 20.0L, Anion Gap 12, Glomerular Filtration Rate 52.2L, Lactic Acid Level 4.2*H, Calcium Level 9.9, Total Bilirubin 0.7, Direct Bilirubin < 0.1, Aspartate Amino Transf (AST/SGOT) 13, Alanine Aminotransferase (ALT/SGPT) 20, Alkaline Phosphatase 87, Total Creatine Kinase 70, Creatine Kinase MB 1.4, Creatine Kinase MB Relative Index 2.00, Troponin I < 0.02, Total Protein 7.5, Albumin 4.0, Albumin/Globulin Ratio 1.1, Lipase 84 12/07/20 02:29: Immature Granulocyte % (Auto) 0.7, Neutrophils (%) (Auto) 83.6H, Lymphocytes (%) (Auto) 4.4L, Monocytes (%) (Auto) 7.2, Eosinophils (%) (Auto) 3.7H, Basophils (%) (Auto) 0.4, Neutrophils # (Auto) 9.0H, Lymphocytes # (Auto) 0.5L, Monocytes # (Auto) 0.8, Eosinophils # (Auto) 0.4, Basophils # (Auto) 0.0, Nucleated Red Blood Cells % (auto) 0.0, Anion Gap 9, Glomerular Filtration Rate > 60.0, Calcium Level 7.7#L, Total Bilirubin 0.5, Direct Bilirubin 0.1, Aspartate Amino Transf (AST/SGOT) 7, Alanine Aminotransferase (ALT/SGPT) 15, Alkaline Phosphatase 65, Total Protein 5.6#L, Albumin 3.1#L, Albumin/Globulin Ratio 1.2, Erythrocyte Sedimentation Rate 1, Lactic Acid Followup at 4 Hours 1.4, Thyroid Stimulating Hormone (TSH) 1.150 CBC/BMP Laboratory Tests 12/06/20 20:07 12/07/20 02:29 Microbiology Microbiology 12/07/20 Gastrointestinal Tract Panel (PCR) - Final, Complete 12/07/20 Respiratory Virus Panel (PCR) ([facility]) - Final, Complete 12/06/20 Gastrointestinal Tract Panel (PCR) - Final, Complete 12/06/20 Blood Culture, Received Pending 12/06/20 Blood Culture, Received Pending AKANKSHA MILLER MD Dec 07, 2020 11:26
[2020-12-07] MEDS: OCTREOTIDE ACETATE 100MCG/ML VIAL (J2354 PER 25MCG) IV SCH ×2 (12:50→20:30)
[2020-12-07] MEDS ORDERED: LOPERAMIDE 2 MG CAPLET PO SCH (13:00)
[2020-12-07 14:00] VITALS: BP 135/81
[2020-12-07] MEDS: LACTOBACILLUS ACIDOPHILUS CAP (BACID) PO SCH (18:01)
[2020-12-07] MEDS: LOPERAMIDE 2 MG CAPLET PO SCH ×2 (18:01→20:31)
[2020-12-07] MEDS: SIMETHICONE 80MG CHEW TAB PO PRN (20:31)
[2020-12-07 22:00] VITALS: BP 141/95
[2020-12-08] MEDS: NS 1,000 ML IV SCH ×3 (04:07→21:45)
[2020-12-08] MEDS: OCTREOTIDE ACETATE 100MCG/ML VIAL (J2354 PER 25MCG) IV SCH ×2 (04:07→17:41)
[2020-12-08] MEDS: HEPARIN SOD (PORCINE) 5000UNITS/ML 1ML VIAL/SYRINGE SQ SCH ×2 (04:07→17:41)
[2020-12-08 06:00] VITALS: BP 130/88
[2020-12-08 09:00] VITALS: BP 132/86
[2020-12-08] MEDS: LACTOBACILLUS ACIDOPHILUS CAP (BACID) PO SCH ×3 (09:06→17:40)
[2020-12-08] MEDS: LOPERAMIDE 2 MG CAPLET PO SCH ×4 (09:07→20:50)
[2020-12-08] MEDS: atenoloL 50 MG TAB PO SCH (09:07)
[2020-12-08] MEDS: PRAVASTATIN 20 MG TAB PO SCH (09:07)
[2020-12-08] MEDS: PANTOPRAZOLE 40MG VIAL (C9113 PER 1) IV SCH (09:08)
[2020-12-08 09:52] LABS: VITAMIN B12 LEVEL 287 PG/ML (247-911)
--- NOTE | 2020-12-08 10:10 | IPNPDOC ---
Subjective Date Seen The patient was seen on 12/08/20. Subjective Chief Complaint/HPI Had 15 bowel movements yesterday and 7 from this morning. Says feels very distended and full of gas. Says the color of stool has changed also from bright red on tuesday to dark red yesterday to dark brown today. No fever. No abdo jazzy tenderness. Objective Physical Examination General Exam: Positive: Alert, Cooperative, No Acute Distress Eye Exam: Positive: PERRLA, Conjunctiva & lids normal ENT Exam: Positive: Atraumatic, Mucous membr. moist/pink Neck Exam: Positive: Supple, JVD Chest Exam: Positive: Clear to auscultation, Normal air movement Heart Exam: Positive: Rate Normal, Regular Rhythm, Normal S1, Normal S2; Negative: Murmurs, Rubs Abdomen Exam: Positive: BS Hyperactive, Soft; Negative: Tenderness, Mass, Hernia Extremity Exam: Negative: Clubbing, Cyanosis, Edema Neuro Exam: Positive: Normal Gait, Normal Speech Assessment /Plan Assessment Mr. Hansen is a 60 year old male with PMH of HTn, HLD, Obesity, s/p vein stripping Left lower leg in 2003, resent appendicitis with appendectomy 3 weeks ago has been having intractable diarrhea for 1 week. This is the patient's third visit to the ED with intractable diarrhea. GI panel has been negative and CT abdomen has been negative. This time with watery diarrhea he also saw some bl ood streaks. On the day of admission he had 40 bowel movements. He was dehydrated with lactic acidosis. He was admitted for intractable diarrhea, dehydration with lactic acidosis. Intractable diarrhea with dehydration and lactacidosis initially watery then bloody for 3 days. GI panel x 3 times negative, CT abd and pelvis just shows fluid filled stomach, intestines suggesting en teritis. H/O appendectomy 3 weeks ago Does Not look bacterial infective so not given antibiotics. continue loperamide, octreotide. Abdominal xray. ID consult Essential Hypertension-chronic continue home medication: Atenolol 100 mg po daily, will hold lisinorpil and HCTZ. Hyperlipidemia-chronic statin Erectile Dysfunction-chronic Sildenafil citrate 25 mg Herpes simplex virus-chronic Valacyclovir 1000 mg po daily prn acute flare up Plan/VTE VTE Prophylaxis Ordered?: Yes VS, I&O, 24H, Fishbone Vital Signs/I&O Vital Signs Date Time Temp Pulse Resp B/P (MAP) Pulse Ox O2 Delivery O2 Flow Rate FiO2 12/08/20 09:07 50 130/88 12/08/20 06:00 97.6 18 Room Air 95.0 12/07/20 22:00 90 I&O- Last 24 Hours up to 6 AM 12/08/20 06:00 Intake Total 6510 ml Output Total 4450 ml Balance 2060 ml Laboratory Data Microbiology Microbiology 12/07/20 Gastrointestinal Tract Panel (PCR) - Final, Complete 12/07/20 Respiratory Virus Panel (PCR) ([facility]) - Final, Complete 12/06/20 Gastrointestinal Tract Panel (PCR) - Final, Complete 12/06/20 Blood Culture - Preliminary, Resulted No growth after 24 hours . All specim... 12/06/20 Blood Culture - Preliminary, Resulted No growth after 24 hours . All specim... AKANKSHA MILLER MD Dec 08, 2020 10:10
--- NOTE | 2020-12-08 10:46 | REP ---
INDICATION: abdominal distension. COMPARISON: None. TECHNIQUE: Supine views of the abdomen and pelvis. FINDINGS: Bowel gas pattern is nonspecific and without obstruction or perforation. No organomegaly. No abnormal calcifications. Skeletal structures intact. IMPRESSION: Normal abdominal radiograph. <Electronically signed by Yang Aviles > 12/08/20 [id number]
[2020-12-08] MEDS: SIMETHICONE 80MG CHEW TAB PO PRN (12:00)
[2020-12-08 12:26] LABS: BASO % 0.4 % (0.0-1.0); EOS # 1.8 10^3/uL (0.0-0.5); HEMATOCRIT 41.8 % (42.0-52.0); HEMOGLOBIN 14.1 g/dl (13.5-17.5); LYMPH # 1.7 10^3/uL (1.5-5.0); LYMPH % 22.5 % (24.0-44.0); MEAN CORPUSCULAR HEMOGLOBIN 30.5 pg (27.0-33.0); MEAN CORPUSCULAR HGB CONC 33.7 g/dl (32.0-36.5); MEAN CORPUSCULAR VOLUME 90.3 fl (80.0-96.0); MONO # 0.6 10^3/uL (0.0-0.8); MONO % 7.8 % (2.0-8.0); NEUTROPHILS # 3.2 10^3/uL (1.5-8.5); NEUTROPHILS % 43.2 % (36.0-66.0); PLATELET COUNT, AUTOMATED 197 10^3/uL (150-450); RED BLOOD COUNT 4.63 10^6/uL (4.30-6.10); WHITE BLOOD COUNT 7.3 10^3/uL (4.0-10.0)
[2020-12-08 12:39] LABS: BLOOD UREA NITROGEN 8 MG/DL (7-18); CALCIUM LEVEL 7.9 MG/DL (8.5-10.1); CARBON DIOXIDE LEVEL 28 MEQ/L (21-32); CHLORIDE LEVEL 115 MEQ/L (98-107); CREATININE FOR GFR 0.92 MG/DL (0.70-1.30); GLOMERULAR FILTRATION RATE > 60.0 (>56); GLUCOSE, FASTING 92 MG/DL (70-100); POTASSIUM SERUM 3.9 MEQ/L (3.5-5.1); SODIUM LEVEL 146 MEQ/L (136-145)
[2020-12-08 12:54] LABS: EOS % 25.1 % (0.0-3.0)
[2020-12-08 16:47] LABS: HEPATITIS C VIRUS ABY INDEX < 0.0 INDEX (<0.8); HIV 1&2 SCREEN CENTAUR NEGATIVE (NEGATIVE)
[2020-12-08] MEDS: VANCOMYCIN ORAL SOL 250MG/5ML ORAL SYRINGE PO SCH (17:40)
[2020-12-08 20:47] VITALS: BP 149/86
[2020-12-09] MEDS: VANCOMYCIN ORAL SOL 250MG/5ML ORAL SYRINGE PO SCH ×5 (00:16→23:52)
--- NOTE | 2020-12-09 00:39 | CR ---
INFECTIOUS DISEASE CONSULTATION DATE: 12/08/2020 REASON FOR CONSULTATION: Severe diarrhea of unclear etiology. HISTORY OF PRESENT ILLNESS: Lawrence is a pleasant 60-year-old gentleman who was admitted in November with acute appendicitis. The patient was discharged within 48 hours on November 19 with Augmentin 875 mg p.o. b.i.d. for one week. The patient finished his antibiotics within five days. He had developed severe diarrhea. He was seen in the Emergency Room with severe nausea and diarrhea on December 02 and on December 05, and he was hydrated. GI panel was obtained; they were negative. Finally the patient was admitted with a fever on December 06 with severe diarrhea, the patient had incontinence, diarrhea every hour. He had bloody stools. The patient was dehydrated, severely fatigued. He had severe nausea and bloating, but no vomiting. He is . His is at the bedside. No other sick contacts in the house. They ate the same food. He works full-time for the [employer] but he had not gone back to work since his appendix surgery. He is frustrated for being sick for the past week, without any etiology. PAST MEDICAL HISTORY: Significant for hypertension, hypercholesterolemia, right clavicle repair, collapsed lung, hyperlipidemia. PAST SURGICAL HISTORY: Appendectomy, right clavicle repair, venous stripping back in 2003, and colonoscopy times two by SOCIAL HISTORY: He is . He lives with his . He has two children. He denies smoking. Social alcohol. ALLERGIES: No known drug allergies. MEDICATIONS: 1. Sandostatin 100 mcg I.V. every 12 hours. 2. Probiotic one tablet p.o. with meals. 3. Loperamide 4 mg p.o. q.i.d. 4. Along with his home medications. REVIEW OF SYSTEMS: He has no chest pain or shortness of breath. No cough. He has nausea, but no vomiting. No abdominal pain. No urinary symptoms. PHYSICAL EXAMINATION: GENERAL: He is a pleasant healthy looking gentleman, in no acute distress. VITAL SIGNS: Temperature 98.6, pulse 65, respirations 16, blood pressure 149/86, O2 sat 96% on room air. T-max was 101.4 on admission. HEART: Normal S1, S2. No murmurs, rubs or gallops. LUNGS: Clear. No wheezes, rales or rhonchi. ABDOMEN: Distended, soft, mildly tender in the right lower quadrant. BACK: No CVA or lumbosacral tenderness. EXTREMITIES: No cyanosis, clubbing or edema. No calf tenderness. SKIN: With no rashes. He has a tattoo on the right arm. LABORATORY DATA: White count 7.3, hemoglobin 14.1, hematocrit 41.8, platelets 197,000. White count on admission 14.2. ESR 1. Sodium 146, potassium 3.9, chloride 115, bicarb 28, BUN 8, creatinine 0.92, glucose 92, calcium 7.9. AST 15, ALT 65. IMAGING: CT abdomen and pelvis showed erythema of the small bowel, mild gastroesophageal thickening, questionable esophagitis, moderate gastric distention with excessive fluid within the small and large bowel. IMPRESSION: This is a 60-year-old gentleman who developed severe diarrhea after appendectomy and being on a course of Augmentin for one week. He had three GI panels that were negative. Blood cultures were negative. He had a fever with elevated white counts. The etiology of his diarrhea is most likely infectious. The most common would be C. difficile, although his bowel movements do not smell like C. diff. Will give him a trial of p.o. Vancomycin 125 mg p.o. q.i.d. We will also send HIV and Hepatitis C testing, which were already sent today and were negative. We will send stool for ova and parasite conventional to rule out cryptosporidium, Cyclospora or other parasitic infection. Case has been discussed with Dr. Bedoya. If he does not improve, the patient will need colonoscopy to rule out other rare etiologies such as CMV colitis. We will obtain CMV urine antigen, IGM, CMV IGM and IGG. [facility]
[2020-12-09] MEDS: NS 1,000 ML IV SCH ×2 (02:54→08:07)
[2020-12-09] MEDS: HEPARIN SOD (PORCINE) 5000UNITS/ML 1ML VIAL/SYRINGE SQ SCH ×2 (06:28→17:15)
[2020-12-09] MEDS: OCTREOTIDE ACETATE 100MCG/ML VIAL (J2354 PER 25MCG) IV SCH (06:29)
[2020-12-09 06:30] VITALS: BP 162/76
[2020-12-09] MEDS: PANTOPRAZOLE 40MG VIAL (C9113 PER 1) IV SCH (08:05)
[2020-12-09] MEDS: atenoloL 50 MG TAB PO SCH (08:06)
[2020-12-09] MEDS: PRAVASTATIN 20 MG TAB PO SCH (08:06)
[2020-12-09] MEDS: LOPERAMIDE 2 MG CAPLET PO SCH ×2 (08:06→12:16)
[2020-12-09] MEDS: LACTOBACILLUS ACIDOPHILUS CAP (BACID) PO SCH ×3 (08:06→17:15)
--- NOTE | 2020-12-09 11:02 | IPN ---
PROGRESS NOTE DATE: 12/09/2020 SUBJECTIVE: Patient complains of "diarrhea, loose stools every hour" documented to be 7 yesterday into this morning, but he says that it was a lot more than that. Patient denies any dizziness, lightheadedness, fever, chills or abdominal pain. He gets cramping when he has a bowel movement and feels better right after. He has noted decrease in abdominal distention. No nausea or vomiting right now but had nausea yesterday, but able to tolerate his diet well without vomiting his meals. PHYSICAL EXAMINATION: VITAL SIGNS: Temperature 97.9, pulse 64, respiratory rate 18, blood pressure 150/74, 97% on room air. GENERAL: Patient is awake, alert and oriented to person, place and time. Answering questions appropriately. HEENT: Moist mucous membranes. No JVD. No thyromegaly. LUNGS: Clear to auscultation. No wheezing, rales or rhonchi. HEART: S1, S2, sinus rhythm. ABDOMEN: Soft, slightly distended. No rebound or guarding. Slightly tender right lower quadrant. EXTREMITIES: No cyanosis or clubbing. LABORATORY DATA: White count 7.3, hemoglobin 14, hematocrit 41, platelet count 197,000. Creatinine 0.92, bicarb 28, potassium 3.9. MICROBIOLOGY: GI panel negative x3. Respiratory panel; Coronavirus negative. IMAGING STUDIES: CT abdomen and pelvis showed distal esophagitis, small bowel wall thickening, mild mesenteric stranding and adenopathy, evidence of infectious versus inflammatory enterocolitis. ASSESSMENT AND PLAN: This is a 60-year-old male admitted on , who complains of persistent diarrhea with history of hypertension, hyperlipidemia, obesity, status post vein stripping left lower extremity in 2003, recent appendicitis with appendectomy three weeks ago with intractable diarrhea for one week, found to have acute kidney injury, creatinine of 1.47 on admission, with GI panel being negative x3. CURRENT ISSUES: 1. Intractable diarrhea with enterocolitis: Currently on p.o. Vanco, Octreotide, I.V. drip Protonix, I.V. Zofran as needed, Simethicone for bloating and I.V. fluids. The patient is being empirically treated for Clostridium difficile with plans for possible colonoscopy with biopsy. Rule out CMV colitis. Per Dr. Boothe, recommendation to Dr. Bedoya. 2. Acute kidney injury: Resolved, secondary to diarrhea and volume loss. 3. Hypertension: Chronic on Atenolol 100 daily. Held Lisinopril and Hydrochlorothiazide. Will start on Norvasc 10 daily. 4. Hyperlipidemia: On chronic statin. 5. Erectile dysfunction: On Sildenafil as needed as an outpatient. 6. HSV:PRN Acyclovir as needed for acute flare-up. MTDD
[2020-12-09] MEDS: NS 0.45% 1,000 ML IV SCH ×2 (11:12→20:53)
[2020-12-09 14:00] VITALS: BP 134/79
--- NOTE | 2020-12-09 15:54 | IPNPDOC ---
Date Seen The patient was seen on 12/09/20. Progress Note addendum to progress note: Hypernatremia due to volume loss/dehydration from diarrhea -dc ns -change to 1/2ns -recheck bmp. VS, I&O, 24H, Fishbone Vital Signs/I&O Vital Signs Date Time Temp Pulse Resp B/P (MAP) Pulse Ox O2 Delivery O2 Flow Rate FiO2 12/09/20 14:00 97.2 57 18 134/79 (97) 98 Room Air 12/08/20 06:00 95.0 I&O- Last 24 Hours up to 6 AM 12/09/20 06:00 Intake Total 3710 ml Output Total 425 ml Balance 3285 ml Laboratory Data Microbiology Microbiology 12/07/20 Gastrointestinal Tract Panel (PCR) - Final, Complete 12/07/20 Respiratory Virus Panel (PCR) ([facility]) - Final, Complete 12/06/20 Gastrointestinal Tract Panel (PCR) - Final, Complete 12/06/20 Blood Culture - Preliminary, Resulted No Growth after 48 hours. All Specime... 12/06/20 Blood Culture - Preliminary, Resulted No Growth after 48 hours. All Specime... STEVEN STODDARD MD Dec 09, 2020 15:53
[2020-12-09] MEDS ORDERED: LOPERAMIDE 2 MG CAPLET PO PRN (16:55)
--- NOTE | 2020-12-09 20:00 | IPN ---
INFECTIOUS DISEASE PROGRESS NOTE DATE: 12/08/2020 SUBJECTIVE: Mr. Hansen seems to be doing much better today. He received 4 doses of p.o. Vancomycin and had only one bowel movement today. He was wondering whether he could discontinue the Imodium to see if diarrhea recurs. He is also on IV Octreotide 100 mcg q. 12 hours and IV Pantoprazole 40 mg q. 24 hours. He denies any fevers or chills. He still complains of being bloated. He has no nausea. His appetite is better. OBJECTIVE: PHYSICAL EXAMINATION: VITAL SIGNS: Temperature is 97.2, pulse 57, respirations 18, blood pressure 134/79, 02 sat 98% on room air. HEART: Normal S1, S2, no murmurs, rubs or gallops. LUNGS: Clear and no rales, rhonchi or wheezes. ABDOMEN: Distended, nontender, positive bowel sounds. EXTREMITIES: No clubbing, cyanosis, or edema. LABORATORY STUDIES: White count 7.3, hemoglobin 14.1, hematocrit 41.8, platelet count 197. Sodium 146, potassium 3.9, chloride 115, bicarbonate 28, BUN 8, creatinine 0.92, glucose 92, calcium 7.9, albumin 3.1. IMPRESSION: 1. Severe diarrhea with dehydration, being treated for a presumptive C-difficile colitis in spite of negative GI panels x3. Patient on probiotics, Vancomycin 125 mg p.o. four times daily. Imodium and Octreotide will be discontinued as well as PPIs as they increase risk of recurrent C-diff. 2. Dehydration with mild hypernatremia - normal saline was switched to half normal saline. The patient is drinking adequately and hopefully IV fluids could be discontinued. PLAN: 1. Discontinue IV Octreotide. 2. Discontinue IV Pantoprazole. 3. Continue Vancomycin 125 mg p.o. q. 6 hours for 14 days. 4. Continue Probiotic twice daily. 5. IV fluids could be discontinued tomorrow if diarrhea does not recur.
[2020-12-09 22:00] VITALS: BP 139/84
[2020-12-10 05:11] LABS: CYTOMEGALOVIRUS IgG ANTIBODY <0.60 U/mL (0.00-0.59); CYTOMEGALOVIRUS IgM ANTIBODY <30.0 AU/mL (0.0-29.9)
[2020-12-10 06:00] VITALS: BP 142/85
[2020-12-10] MEDS: VANCOMYCIN ORAL SOL 250MG/5ML ORAL SYRINGE PO SCH ×3 (06:00→17:34)
[2020-12-10] MEDS: HEPARIN SOD (PORCINE) 5000UNITS/ML 1ML VIAL/SYRINGE SQ SCH ×2 (06:00→17:35)
[2020-12-10] MEDS: NS 0.45% 1,000 ML IV SCH (06:01)
[2020-12-10 06:56] LABS: HEMATOCRIT 37.4 % (42.0-52.0); HEMOGLOBIN 12.9 g/dl (13.5-17.5); MEAN CORPUSCULAR HEMOGLOBIN 30.2 pg (27.0-33.0); MEAN CORPUSCULAR HGB CONC 34.5 g/dl (32.0-36.5); MEAN CORPUSCULAR VOLUME 87.6 fl (80.0-96.0); PLATELET COUNT, AUTOMATED 196 10^3/uL (150-450); RED BLOOD COUNT 4.27 10^6/uL (4.30-6.10); WHITE BLOOD COUNT 10.4 10^3/uL (4.0-10.0)
[2020-12-10 08:28] VITALS: BP 142/85
[2020-12-10] MEDS: LACTOBACILLUS ACIDOPHILUS CAP (BACID) PO SCH ×3 (08:28→17:34)
[2020-12-10] MEDS: PRAVASTATIN 20 MG TAB PO SCH (08:28)
[2020-12-10] MEDS: atenoloL 50 MG TAB PO SCH (08:28)
[2020-12-10] MEDS ORDERED: VANC1CAP6 PO ×2 (10:29→13:58)
[2020-12-10] MEDS ORDERED: RISATAB3 PO (10:29)
[2020-12-10] MEDS ORDERED: NORV5TAB PO (10:30)
[2020-12-10] MEDS ORDERED: SELF1KIT MC (10:40)
[2020-12-10 10:50] LABS: BASO % 0.3 % (0.0-1.0); EOS # 2.9 10^3/uL (0.0-0.5); HEMATOCRIT 37.7 % (42.0-52.0); LYMPH # 1.8 10^3/uL (1.5-5.0); LYMPH % 19.3 % (24.0-44.0); MEAN CORPUSCULAR HGB CONC 34.5 g/dl (32.0-36.5); MEAN CORPUSCULAR VOLUME 87.1 fl (80.0-96.0); MONO # 0.5 10^3/uL (0.0-0.8); MONO % 5.3 % (2.0-8.0); NEUTROPHILS # 3.9 10^3/uL (1.5-8.5); NEUTROPHILS % 41.8 % (36.0-66.0); PLATELET COUNT, AUTOMATED 203 10^3/uL (150-450); RED BLOOD COUNT 4.33 10^6/uL (4.30-6.10); WHITE BLOOD COUNT 9.2 10^3/uL (4.0-10.0)
[2020-12-10 11:20] LABS: BLOOD UREA NITROGEN 7 MG/DL (7-18); CALCIUM LEVEL 8.3 MG/DL (8.5-10.1); CARBON DIOXIDE LEVEL 28 MEQ/L (21-32); CHLORIDE LEVEL 111 MEQ/L (98-107); CREATININE FOR GFR 0.76 MG/DL (0.70-1.30); GLOMERULAR FILTRATION RATE > 60.0 (>56); GLUCOSE, FASTING 100 MG/DL (70-100); MAGNESIUM LEVEL 1.5 MG/DL (1.8-2.4); POTASSIUM SERUM 3.2 MEQ/L (3.5-5.1); SODIUM LEVEL 143 MEQ/L (136-145)
[2020-12-10 11:23] LABS: EOS % 31.2 % (0.0-3.0)
[2020-12-10] MEDS ORDERED: SLOWTAB2 PO ×2 (13:54→16:54)
[2020-12-10] MEDS ORDERED: POTA1TAB14 PO (13:54)
[2020-12-10 14:00] VITALS: BP 144/85
[2020-12-10] MEDS: MAG SULF 1GM/100ML (MAG RUN) 1 GM in IV 1 EA IV SCH ×2 (14:28→15:54)
[2020-12-10] MEDS: POTASSIUM CHLORIDE 10 MEQ SR TABLET PO SCH ×2 (14:28→15:54)
--- NOTE | 2020-12-10 15:26 | DSES ---
DISCHARGE SUMMARY DATE OF ADMISSION: 12/08/2020 DATE OF DISCHARGE: 12/10/2020 SECRETARY TO THE VICE PRESIDENT: Francisco Boothe M.D., infectious disease specialist. PRIMARY DISCHARGE DIAGNOSES: 1. Severe diarrhea with dehydration with presumptive Clostridium difficile colitis in spite of negative GI panel x3. 2. Electrolyte abnormalities with low potassium and low magnesium. 3. Hypernatremia. 4. Leukocytosis. 5. Lactic acidosis. 6. Morbid obesity with body mass index (BMI) of 35.3. 7. Acute kidney injury secondary to dehydration, volume depletion from diarrhea. 8. Hypertension. 9. Hyperlipidemia. 10. Erectile dysfunction. 11. History of herpes simplex virus infection. DISCHARGE MEDICATIONS: 1. Vancomycin 125 mg q. 6 hourly to complete a total of a 14-day course from his hospital stay; 12 more days as outpatient. 2. Potassium 40 mEq daily. 3. Norvasc 5 daily. 4. Bacid one tablet with meals. 5. Atenolol 100 daily. 6. Loperamide 2 mg as directed. 7. Zofran 4 mg q. 6-8 hourly as needed for nausea and vomiting. 8. Pravastatin 40 daily. 9. Viagra 25. 10. Simethicone 180 t.i.d. DISCHARGE INSTRUCTIONS: Hold lisinopril and hydrochlorothiazide until diarrhea has completely subsided. Primary care physician, GI, and Dr. Boothe follow-up appointment within seven days. HOSPITAL COURSE: This is a 60-year-old male admitted on 12/07/2020, with persistent diarrhea and bloating found to have acute kidney injury secondary to severe volume depletion. The patient was having a bowel movement once every hour and leukocytosis of 14,000, but was afebrile. CT abdomen and pelvis showed gastroesophageal thickening with questionable gastric distention, distal esophagitis, patent major mesenteric arterial branches are seen, small bowel wall thickening, evidence of infectious or inflammatory enterocolitis. The patient had over 40 bowel movements and had intractable diarrhea. GI panel was negative x3. IV fluids were given. Lactic acidosis resolved. He was subsequently placed on loperamide and Octreotide. Infectious disease (ID) was consulted. The patient was treated for presumptive C. diff colitis with vancomycin 125 mg q. 6 hourly with improvement in diarrhea from every hour to five times daily. Due to acute kidney injury and dehydration, the patient's lisinopril and hydrochlorothiazide were held. He was given Norvasc for blood pressure and continued on his beta-jay of Atenolol 100 daily. The patient had clinical improvement, but his electrolytes both potassium and magnesium were abnormal and supplemented. Dr. Michelle Boothe saw the patient and recommended 14 full days of vancomycin orally and to keep on Bacid one tablet with meals as an outpatient. DISCHARGE PHYSICAL EXAMINATION: VITAL SIGNS: Temperature 98.4, pulse 67, respiratory rate 18, blood pressure 142/85, 98% on room air. GENERAL: Awake, alert, and oriented to person, place, and time. HEENT: Anicteric. Moist mucous membranes. No JVD. No thyromegaly. LUNGS: Clear to auscultation with no wheezing, rales, or rhonchi. HEART: S1, S2, sinus rhythm. ABDOMEN: Distended, obese, soft. No rebound or guarding. EXTREMITIES: No cyanosis or clubbing. DIAGNOSTIC STUDIES: Laboratory data, microbiology, and imaging studies please see the chart. Time spent on discharge 30 minutes. OLINDAD
[2020-12-10 17:59] LABS: BLOOD UREA NITROGEN 8 MG/DL (7-18); CALCIUM LEVEL 8.5 MG/DL (8.5-10.1); CARBON DIOXIDE LEVEL 29 MEQ/L (21-32); CHLORIDE LEVEL 108 MEQ/L (98-107); CREATININE FOR GFR 0.94 MG/DL (0.70-1.30); GLOMERULAR FILTRATION RATE > 60.0 (>56); GLUCOSE, FASTING 75 MG/DL (70-100); MAGNESIUM LEVEL 2.3 MG/DL (1.8-2.4); POTASSIUM SERUM 3.5 MEQ/L (3.5-5.1); SODIUM LEVEL 144 MEQ/L (136-145)
--- NOTE | 2020-12-10 23:39 | IPN ---
PROGRESS NOTE DATE: 12/10/2020 SUBJECTIVE: The patient has been admitted with significant dehydration and diarrhea of undetermined etiology. GI has seen the patient and presumptive diagnosis was of possible C-diff colitis, however that has been negative thus far. Fortunately, he has done really well with the antibiotic treatment and his bowel movements have substantially decreased and he has actually been off the Imodium and Octreotide since yesterday morning, and the day prior he actually had decreased bowel movements as well. He had an elevated white count when he first came in that was significantly elevated and slowly has dropped down to the normal range, and has been doing relatively well. He states he is not having any abdominal pains, mostly just fatigued and he has been afebrile and states that he has had some smaller bowel movements and more formed. His abdomen is soft, nontender, nondistended. His incisions are healing nicely from his laparoscopic appendectomy and no inflammatory or infectious process is appreciated. IMPRESSION AND PLAN: The patient has postoperative infectious colitis, although it is hard to know if this is truly infectious colitis or whether this is antibiotic induced, whether this is viral, etc. In any case current treatment has resolved/is resolving his current issue with the diarrhea and given this improvement, I do recommend continued as per Infectious Disease. The patient can follow up with me on a p.r.n. basis concerning his appendectomy but at this point he can return to regular activity without restrictions. Otherwise he can be discharged home when medically stable, but from a surgical standpoint, can be discharged home at any time.
== END 2020-12-10 18:35 | disposition home or self-care (01) | DRG 248 ==
LOC: M ED 18:22 → EDBD 18:22 → M ED INP 18:23 → ENRESERV 12-07 03:24 → M MS5PR 12-07 03:59 → INTOOBSV 12-08 09:56 → OBSVTOIN 12-08 09:56
PROVIDERS: ADMIT Family Medicine; ATTEND General Practice
DX: A04.72 Enterocolitis due to Clostridium difficile, not specified as recurrent (principal); N17.9 Acute kidney failure, unspecified; E87.0 Hyperosmolality and hypernatremia; E87.2 Acidosis; E87.8 Other disorders of electrolyte and fluid balance, not elsewhere classified; R19.7 Diarrhea, unspecified; R53.1 Weakness; E78.5 Hyperlipidemia, unspecified; I10 Essential (primary) hypertension; Z90.49 Acquired absence of other specified parts of digestive tract; Z79.899 Other long term (current) drug therapy; I99.8 Other disorder of circulatory system; E86.0 Dehydration; N52.9 Male erectile dysfunction, unspecified; B00.9 Herpesviral infection, unspecified; Z20.822 Contact with and (suspected) exposure to COVID-19; E66.9 Obesity, unspecified; Z68.35 Body mass index [BMI] 35.0-35.9, adult

== ENCOUNTER → 2020-12-27 | Outpatient (CLI) | payer SELFPAY, OTHER ==
[~2020-12-27] MED LIST changes: +NORV5TAB PO; +POTA1TAB14 PO; +RISATAB3 PO; +SELF1KIT MC; +SIME1CAP3 PO; +SLOWTAB2 PO; +VANC1CAP6 PO
== END ==
LOC: M LABSMTC 08:21
PROVIDERS: ATTEND Pediatrics
DX: Z20.822 Contact with and (suspected) exposure to COVID-19 (principal)

== ENCOUNTER → 2021-10-20 | Outpatient (CLI) | payer BC, OTHER ==
[~2021-10-20] MED LIST changes: -LISI10TA15 PO; +LISI10TA24 PO; -LISI20TA20 PO; +LISI20TA37 PO
== END ==
LOC: M RAD 08:48
PROVIDERS: ATTEND Family Medicine
DX: Z12.2 Encounter for screening for malignant neoplasm of respiratory organs (principal); R91.8 Other nonspecific abnormal finding of lung field; F17.211 Nicotine dependence, cigarettes, in remission

== ENCOUNTER → 2022-11-30 | Outpatient (CLI) | payer BC, OTHER ==
[~2022-11-30] MED LIST changes: +POTA-298 PO; -POTA1TAB14 PO
== END ==
LOC: M RAD 08:30
PROVIDERS: ATTEND Family Medicine
DX: F17.210 Nicotine dependence, cigarettes, uncomplicated (principal)

== ENCOUNTER → 2023-02-28 | Outpatient (CLI) | payer BC, OTHER | LOC: M RAD 13:00 | PROVIDERS: ATTEND Surgery Vascular Surgery | DX: I83.812 Varicose veins of left lower extremity with pain (principal) ==

== ENCOUNTER → 2023-05-10 | Outpatient (CLI) | payer BC, OTHER ==
[~2023-05-10] VITALS: Ht 182.9 cm; Wt 111.4 kg
[~2023-05-10] MED LIST changes: +ASPI81TA26 PO; +ATOR1TAB21 PO; +LIDOCAINE 1% MDV 20ML VIAL As Ordered ONE; +LIDOCAINE W/EPINEPHRINE 1% 20ML VIAL As Ordered ONE; +MIDAZOLAM INJ 2MG/2ML VIAL As Ordered ONE; +SODIUM BICARBONATE 8.4% INJ 50MEQ 50ML VIAL As Ordered ONE; +fentaNYL 100 MCG/2 ML INJECTION As Ordered ONE
[2023-05-10 06:55] VITALS: TEMP 98
[2023-05-10 07:15] LABS: HEMATOCRIT 45.3 % (42.0-52.0); HEMOGLOBIN 16.1 g/dl (13.5-17.5); MEAN CORPUSCULAR HEMOGLOBIN 32.1 pg (27.0-33.0); MEAN CORPUSCULAR HGB CONC 35.5 g/dl (32.0-36.5); MEAN CORPUSCULAR VOLUME 90.2 fl (80.0-96.0); PLATELET COUNT, AUTOMATED 188 10^3/uL (150-450); RED BLOOD COUNT 5.02 10^6/uL (4.30-6.10); WHITE BLOOD COUNT 6.8 10^3/uL (4.0-10.0)
[2023-05-10 07:44] LABS: BLOOD UREA NITROGEN 10 MG/DL (9-23); CALCIUM LEVEL 9.1 MG/DL (8.3-10.6); CARBON DIOXIDE LEVEL 28 MMOL/L (20-31); CHLORIDE LEVEL 109 MMOL/L (98-107); CREATININE FOR GFR 0.97 MG/DL (0.70-1.30); GLOMERULAR FILTRATION RATE > 60.0 (>49); GLUCOSE, FASTING 106 MG/DL (74-106); POTASSIUM SERUM 4.2 MMOL/L (3.5-5.1); SODIUM LEVEL 143 MMOL/L (136-145)
[2023-05-10 10:30] VITALS: BP 136/83; O2SAT 96
== END ==
LOC: M IRPRO 06:36
PROVIDERS: ATTEND Surgery Vascular Surgery
DX: I83.892 Varicose veins of left lower extremity with other complications (principal)
CPT/HCPCS: 36475; 80048; 85027; 99152; 99153; J2250; J3010

== ENCOUNTER → 2023-05-12 | Outpatient (CLI) | payer BC, OTHER ==
[~2023-05-12] MED LIST changes: -LIDOCAINE 1% MDV 20ML VIAL As Ordered ONE; -LIDOCAINE W/EPINEPHRINE 1% 20ML VIAL As Ordered ONE; -MIDAZOLAM INJ 2MG/2ML VIAL As Ordered ONE; -SODIUM BICARBONATE 8.4% INJ 50MEQ 50ML VIAL As Ordered ONE; -fentaNYL 100 MCG/2 ML INJECTION As Ordered ONE
== END ==
LOC: M WHC 07:41
PROVIDERS: ATTEND Surgery Vascular Surgery
DX: Z48.89 Encounter for other specified surgical aftercare (principal)

== ENCOUNTER → 2024-01-03 | Outpatient (CLI) | payer BC ==
[~2024-01-03] MED LIST changes: +ONDA-282 PO; -ONDA4TAB6 PO
== END ==
LOC: M RAD 15:42
PROVIDERS: ATTEND Family Medicine
DX: Z12.2 Encounter for screening for malignant neoplasm of respiratory organs (principal); F17.210 Nicotine dependence, cigarettes, uncomplicated; R91.8 Other nonspecific abnormal finding of lung field